=== PATIENT | male | born 1995 | race Hispanic/Latino ===

== ENCOUNTER 2024-11-17 21:44 | Emergency (ER) | payer SELFPAY ==
[~2024-11-17] VITALS: Ht 177.8 cm; Wt 108.0 kg
--- NOTE | 2024-11-17 21:51 | ERN ---
ED Note History of Present Illness Stated Complaint: C/O LEFT FLANK PAIN; Chief Complaint: Flank Pain Time Seen by MD: 21:47 Dictation: This is a 28-year-old male who presented to the emergency room with severe left flank pain that started about a day ago stated that he has a known history of kidney stones and this episode feels like another colic. He denied any fever chills or rigors. He was extremely uncomfortable diaphoretic pacing in the exam room unable to sit or lay down due to pain. He stated that he has seen a vice president digital strategist when he passed a stone 2nd time. The stone has never been analyzed. Temperature 97.3 pulse 92 respirations 20 blood pressure 159/113 with a pulse oximetry of 98% on room air Allergies: Coded Allergies: No Known Allergies (Unverified Allergy, Unknown, 11/17/24) Past Medical History Past Medical History: Other Additional Past Medical Hx: HX OF KIDNEY STONES Surgical History: None Review of System Dictation Constitutional: Negative for fever,chills, and weight loss Eyes: Negative for injury, pain,redness, and discharge ENT: Negative for injury,pain or swelling Cardiovascular: Negative for chest pain, palpitations, and edema Respiratory: Negative for shortness of breath, cough, and wheezing, Abdomen/GI: Negative for abdominal pain, nausea, vomiting, diarrhea, and constipation Back: Negative for injury and pain : Negative for injury, bleeding and discharge positive for left flank pain which actually has migrated more to the left lower quadrant and inguinal area MS/Extremity: Negative for injury and deformity Skin: Negative for rash, and discoloration Neuro: Negative for headache, weakness, numbness, tingling, and seizure Psych: Negative for suicide ideation, homicidal ideation, and hallucinations Initial Vital Sign VS Vital Signs Date Time Temp Pulse Resp B/P (MAP) Pulse Ox O2 Delivery O2 Flow Rate FiO2 11/17/24 21:45 97.3 92 20 159/113 98 Room Air 11/17/24 21:53 0 21 Physical Exam Dictation General: awake, alert, NAD obese male very uncomfortable diaphoretic from the pain just walking around. Head/Face: Normocephalic, atraumatic Eyes: PERRL, EOMI, vision at baseline ENT: oral cavity clear, TMs clear, no signs of infection Neck: Trachea midline, supple, no nuchal rigidity Cardiovascular: RRR, normal S1/S2, No MRGs, no JVD Respiratory: CTAB, no respiratory distress, No rales or wheezes Abdomen: Soft, non-tender, non-distended, normal bowel sounds, no guarding or rebound. Skin: Warm, dry, normal turgor, no rash MS/Extremity: Pulses equal, no cyanosis, neurovascular intact, FROM Neuro: COAx4, GCS 15, strength 5/5, CN 2-12 intact, normal cerebellar exam, normal gait, Psych: Normal behavior, mood, and affect normal Extremities-trace edema without any palpable cords, Homans sign is negative Results (Laboratory/Radiology) Laboratory/Radiology Laboratory Tests Test 11/17/24 21:49 Urine Color LIGHT-YELLOW (YELLOW) Urine Appearance CLEAR (CLEAR) Urine pH 6.0 (5.0-8.0) Urine Specific [place] 1.029 (1.001-1.031) Urine Protein NEGATIVE mg/dL (NEGATIVE) Urine Glucose (UA) NEGATIVE mg/dL (NEGATIVE) Urine Ketones NEGATIVE mg/dL (NEGATIVE) Urine Occult Blood +- (TRACE) (NEGATIVE) H Urine Nitrate NEGATIVE (NEGATIVE) Urine Bilirubin NEGATIVE mg/dL (NEGATIVE) Urine Urobilinogen 0.2 mg/dL (0.2-1.0) Urine Leukocyte Esterase NEGATIVE Kirsten/uL Urine Opiates Screen NEGATIVE (NEGATIVE) Urine Barbiturates Screen NEGATIVE (NEGATIVE) Urine Phencyclidine Screen NEGATIVE (NEGATIVE) Urine Amphetamines Screen NEGATIVE (NEGATIVE) Urine Benzodiazepines Screen NEGATIVE (NEGATIVE) Urine Cocaine Screen NEGATIVE (NEGATIVE) Urine Marijuana (THC) Screen POSITIVE (NEGATIVE) H Labs Reviewed?: Yes CT Scan Comment: REASON: renal colic. evaluate hydronephrosis ORDERING PHYSICIAN: DEIRC SPRINGER MD PROCEDURE: ABD PELVWO - CT ABD/PEL WO CON RENAL/APPY EXAM: CT Abdomen and Pelvis without IV contrast. CLINICAL HISTORY: Renal colic. Evaluate hydronephrosis. TECHNIQUE: Thin collimated axial CT images of the abdomen and pelvis were obtained, with sagittal and coronal reformatted images also submitted. A CT scan is done according to ALARA (As Low As Reasonably Achievable). CONTRAST: None. COMPARISON: None. FINDINGS: Unremarkable visualized lung parenchyma. No focal abnormality within the gallbladder, pancreas, spleen, or adrenals. Diffuse fatty infiltration of the liver. A 3 mm nonobstructive calculus at the upper pole calyx of the right kidney. A tiny 1 mm nonobstructive calculus at the midpole calyx of the right kidney. A 3 mm obstructive calculus at the left ureterovesical junction with mild proximal hydroureter and mild hydronephrosis in the left kidney. There is no obvious bowel wall thickening. Bowel loops are normal in caliber without evidence of obstruction or ileus. The appendix is normal. There is no abnormality within the urinary bladder. Unremarkable reproductive organs. No lymphadenopathy. No free fluid. There is no acute osseous abnormality. A small umbilical hernia containing fat IMPRESSIONS: Small obstructive calculus at the left ureterovesical junction with mild proximal hydroureteronephrosis. Nonobstructive right renal calculi. Diffuse fatty infiltration of the liver. /[place] DICTATED BY: ERIKA MEJIA Jr., MD DATE: 11/18/2428 ELECTRONICALLY SIGNED BY: ERIKA MEJIA Jr., MD DATE: 11/18/2428 ED Course ED Course Orders Procedure Category Date Status Time Urinalysis Profile LAB 11/17/24 Complete 21:49 Drug Screen Urine LAB 11/17/24 Complete 21:49 Ketorolac PHA 11/17/24 Complete Tromethamine 30mg/Ml 22:00 0.9% Nacl 500ml PHA 11/17/24 Complete Iv.Soln (Ns 500ml 22:00 Ct Abd/Pel Wo Con CT 11/17/24 Resulted Renal/Appy 21:58 Current Medications Medications (Trade) Dose Ordered Sig/Lex Route PRN Reason Start Time Stop Time Status Last Admin Dose Admin Ketorolac Tromethamine (toRADol) 30 mg ONCE ONCE IVP 11/17/24 22:00 11/17/24 22:02 DC 11/17/24 22:10 Sodium Chloride 500 ml @ 0 mls/hr ONCE ONCE IV 11/17/24 22:00 11/17/24 22:02 DC 11/17/24 22:10 Vital Signs Date Time Temp Pulse Resp B/P (MAP) Pulse Ox O2 Delivery O2 Flow Rate FiO2 11/17/24 23:27 80 20 150/9 99 Room Air* 0 21 11/17/24 21:53 98.8 97 22 171/102 99 Room Air* 0 21 11/17/24 21:45 97.3 92 20 159/113 98 Room Air We will perform diagnostic labs, advanced imaging and administer medications according to the patient's complaint. Once the results are available, will review and personally interpreted the labs to rule out any acute life- threatening emergency the trach require immediate intervention and treatment. I will then re-evaluate the patient after treatment and diagnostic exams have return to determine whether the patient requires any further testing, can safely be discharged home or need further admission to hospital for additional treatment and evaluation. 10:50 p.m. labs reviewed urinalysis showed positive blood and UDS was positive for THC. 11:[address] scan of the abdomen and pelvis renal protocol showed bilateral nephrolithiasis 3 mm and 1 mm stones on the right side and a 3 mm stone at the left UV junction. Very mild hydronephrosis and hydroureter on the left side. 11:55 p.m. I updated the patient and his friend on the CT findings and he feels amazing and pain is significantly relieved. Instructed him to increase the fluid intake and see his urologist. Patient and his friend verbalized full understanding Medical Decision Making MDM Differential diagnosis: Renal colic, hydroureter, hydronephrosis, pyelonephritis, diverticulitis, constipation Rationale: Tests considered and ordered secondary to shared decision making include: Previous outside records reviewed: Old ER visits. Risk of complication and/or morbidity or mortality of patient management: None Medications-Per medication reconciliation Need for hospitalization: Patient does not meet criteria for hospitalization. Need for emergency major/minor surgery: No There are no social concerns with this patient. Prescription drug management Prescriptions will include symptomatic care Patient's prior external medical records from other ER visits were reviewed by me as indicated. Prior testing and results from previous visits were reviewed. Prior tests were taken into account with medical decision making and resource utilization, independent historian/historians were used to obtain complete medical history. I independently interpreted the test that were performed, results were reviewed by me and considered findings on radiology if ordered. Medical management and examination interpretation discussions were had by me with other qualified healthcare professionals as indicated for the patient's care. Problem List Problem List: (1) Renal colic on left side DX & DISP Disposition: Discharge Departure Impression: Primary Impression: Renal colic on left side Additional Impressions: Bilateral nephrolithiasis, Hydroureter Condition: Stable Scripts Ketorolac Tromethamine (Toradol) 10 Mg Tab 10 MG PO QID for pain for 5 Days, #20 TAB 0 Refills Prov: DERIC SPRINGER MD 11/17/24 Additional Instructions: Patient and the caregiver have been informed of all the diagnostic tests and the imaging conducted during the today's visit to the emergency room and has verbali zed understanding of the results I have personally reviewed and interpreted all diagnostic exams performed here in the ER today as well as the vital signs documented by the nursing staff. The patient is now being discharged to home and should follow up with the primary care physician or the specialist as directed by the ER staff. Follow-up with primary care provider in 1 to 2 days. Take medications as directed here in the emergency room. Okay to continue home medications unless otherwise discussed during your visit in the emergency room today. Return to your nearest emergency room if symptoms worsen or if there is no improvement. Call 911 if you need immediate assistance. Take Tylenol or Motrin [id number] as needed and if no contraindications are present. Increase oral hydration. A wound culture or urine culture was ordered here in the emergency room department please follow-up with primary care provider and advise them to get repeat ports from our facility. If you had any [place] wrap/splints segundo t were applied here, please do not remove them until you see your primary care or specialty. DERIC SPRINGER MD Nov 17, 2024 21:51
[2024-11-17 22:08] LABS: APPEARANCE,URINE CLEAR (CLEAR); GLUCOSE, URINE (UA) NEGATIVE (NEGATIVE); LEUKOCYTE ESTERASE ,URINE NEGATIVE Leu/uL (NEGATIVE); NITRATE,URINE NEGATIVE (NEGATIVE); OCCULT BLOOD,URINE +- (TRACE) (NEGATIVE)
[2024-11-17 22:09] LABS: ADD UA MICROSCOPIC NO
[2024-11-17] MEDS: 0.9% NACL 500ML IV.SOLN 500 ML IV ONE (22:10)
[2024-11-17 22:16] LABS: AMPHET/METH SCREEN,URINE NEGATIVE (NEGATIVE); BARBITURATE SCREEN, URINE NEGATIVE (NEGATIVE); CANNABINOID SCREEN,URINE POSITIVE (NEGATIVE); COCAINE SCREEN,URINE NEGATIVE (NEGATIVE)
--- NOTE | 2024-11-17 23:30 | HMCIMG ---
EXAM: CT Abdomen and Pelvis without IV contrast. CLINICAL HISTORY: Renal colic. Evaluate hydronephrosis. TECHNIQUE: Thin collimated axial CT images of the abdomen and pelvis were obtained, with sagittal and coronal reformatted images also submitted. A CT scan is done according to ALARA (As Low As Reasonably Achievable). CONTRAST: None. COMPARISON: None. FINDINGS: Unremarkable visualized lung parenchyma. No focal abnormality within the gallbladder, pancreas, spleen, or adrenals. Diffuse fatty infiltration of the liver. A 3 mm nonobstructive calculus at the upper pole calyx of the right kidney. A tiny 1 mm nonobstructive calculus at the midpole calyx of the right kidney. A 3 mm obstructive calculus at the left ureterovesical junction with mild proximal hydroureter and mild hydronephrosis in the left kidney. There is no obvious bowel wall thickening. Bowel loops are normal in caliber without evidence of obstruction or ileus. The appendix is normal. There is no abnormality within the urinary bladder. Unremarkable reproductive organs. No lymphadenopathy. No free fluid. There is no acute osseous abnormality. A small umbilical hernia containing fat IMPRESSIONS: Small obstructive calculus at the left ureterovesical junction with mild proximal hydroureteronephrosis. Nonobstructive right renal calculi. Diffuse fatty infiltration of the liver. /[place]
[2024-11-17] MEDS ORDERED: KETO10 PO (23:49)
[2024-11-17 23:57] VITALS: BP 153/92; PULSE 98; RESP 20; TEMP 98.5; O2SAT 99
== END 2024-11-18 00:05 | disposition home or self-care (01) ==
LOC: EDH 21:44
DX: N13.2 Hydronephrosis with renal and ureteral calculous obstruction (principal)
CPT/HCPCS: 99285; 74176; 96374; 96361; 80305; 81003; J1885; J7040